=== PATIENT | female | born 1985 | race Caucasian/White ===

== ENCOUNTER 2020-12-20 11:21 | Emergency (ER) | payer BC, SELFPAY ==
--- NOTE | ~2020-12-20 | XR_ITS ---
EXAMINATION: XR chest 2V DATE: 12/20/2020 12:03 INDICATION: Shortness of breath and dry cough TECHNIQUE: PA and lateral views of the chest are obtained. COMPARISON: None available FINDINGS: The lungs are free of acute opacities. There is no pleural effusion or pneumothorax. The ca rdiomediastinal silhouette is normal. The visualized bones and soft tissues are unremarkable. IMPRESSION: 1. No acute cardiopulmonary abnormality. Reviewed, dictated and finalized at location A.
--- NOTE | 2020-12-20 11:41 | ED.GENADULT ---
HPI - General Adult General Chief complaint: Upper Respiratory Infection Stated complaint: Shortness of Breathe Time Seen by Provider: 12/20/20 11:41 Source: patient and RN notes reviewed Mode of arrival: ambulatory Limitations: no limitations History of Present Illness HPI narrative: 35-year-old female presents with complaints of dry cough, congestion, chills, nausea, body aches, and fatigue for the past 2 days. ?Jaimie reports increasing symptoms over the past 24 hours with intermittent shortness of breath and sore throat. ?Mucinex without relief. ?Dry cough with chest congestion. ?Rhinorrhea and nasal congestion. ?No high fevers, drooling, neck or throat swelling. ?No chest pain or wheezing. ?No exacerbation factors. Nausea without vomiting and abdominal pain. ?Tolerating liquids well. ?LMP 12/06/2020. ?Remains active. ?The patient reports she has not been diagnosed with COVID-19. ?The patient reports she is not waiting for the results of a COVID-19 lab test. ?The patient reports she does not have a worsening cough. ?The patient reports she does not have any loss of taste or smell and diarrhea. ?Denies recent traveling. ?Denies concerns for COVID-19 or exposures. ?At this time, the patient is not suspected of having COVID-19.? Some parts of this dictation were generated by voice recognition software and may contain typographical and/or grammatical inaccuracies. Related Data Home Medications Medication Instructions Recorded Confirmed dextroamphetamine-amphetamine 30 mg BID 12/20/20 12/20/20 Allergies Allergy/AdvReac Type Severity Reaction Status Date / Time No Known Allergies Allergy Verified 02/18/19 04:22 Review of Systems Review of Systems: Narrative: CONSTITUTIONAL: Denies fever, sweats. Complaints of chills, fatigue. EYES: Denies visual changes, redness, discharge. ENT: Complains of rhinorrhea, congestion, sore throat. Denies otalgia. CARDIOVASCULAR: Denies chest pain, palpitations, edema. RESPIRATORY: Denies ?wheezing. Complains of dry cough, intermittent dyspnea. GASTROINTESTINAL: Denies abdominal pain, vomiting, diarrhea. Complains of nausea. GENITOURINARY: Denies dysuria, hematuria, abnormal discharge. SKIN: Denies rash or itching. MUSCULOSKELETAL: Denies acute back pain, joint pain, or myalgia. NEUROLOGIC: Denies numbness or focal weakness. PSYCHIATRIC: Denies anxiety or depression. All systems reviewed & are unremarkable except as noted in HPI and below. [facility] Past Medical History Medical History (Updated 12/20/20 @ 12:07 by DARLENE Gonzales) ADHD (attention deficit hyperactivity disorder) Anxiety Endometriosis Surgical History Surgical History (Updated 12/20/20 @ 12:04 by DARLENE Gonzales) History of abdominal surgery For endometriosis Family History Family History (Updated 12/20/20 @ 12:04 by DARLENE Gonzales) Father Hypertension Mother Hypertension Depression Anxiety Social History Social History (Updated 12/20/20 @ 12:05 by DARLENE Gonzales) Smoking status: Former smoker Tobacco type: cigarettes Second hand tobacco smoke exposure: No Smoking end date: 07/06/10 Alcohol intake: current Substance use: never Substance use type: does not use Living arrangements: with family Occupation/Education: occupation Gender identity (if verbalized by the patient): Female Sexual Orientation (if Verbalized by the Patient): Straight or Heterosexual Comments At time of signature, agree with the nurse past medical, surgical, social, and family history. There is no relevant family history pertinent to the presenting complaint. Exam Narrative: Exam Narrative: GENERAL: This is a well-nourished, well-developed patient, in no apparent distress. Talks in full sentences and ambulates with steady gait without dyspnea. HEAD: Normocephalic, atraumatic. EYES: PERRL. Sclera clear/white. Vision is grossly intact. EARS: External ears normal, auditory
[2020-12-20 11:42] VITALS: BP 96/78; PULSE 107; RESP 20; TEMP 36.8; O2SAT 100
[2020-12-20 12:32] VITALS: BP 116/62
[2020-12-21 16:57] LABS: SARS-CoV-2 RNA PCR Negative
== END 2020-12-20 12:38 | disposition home or self-care (01) ==
PROVIDERS: Emergency Provider Nurse Practitioner Family
DX: J40 Bronchitis, not specified as acute or chronic (principal); Z20.822 Contact with and (suspected) exposure to COVID-19; Z87.891 Personal history of nicotine dependence; F90.9 Attention-deficit hyperactivity disorder, unspecified type; N80.9 Endometriosis, unspecified
CPT/HCPCS: 71046; 99213; C9803; G0463; U0003; U0005

== ENCOUNTER 2021-07-21 11:04 | Emergency (ER) | payer BC, SELFPAY ==
[2021-07-21 11:20] VITALS: BP 112/76; PULSE 82; RESP 16; TEMP 36.8; O2SAT 100
--- NOTE | 2021-07-21 11:40 | ED.URI ---
HPI - URI/Sore Throat General Chief Complaint: Upper Respiratory Infection Stated Complaint: Congestion,Shortness of Breath,Headache,Cough History of Present Illness HPI Narrative: This is a 35 year old vaccinated female that present as she is positive for COVID and feel like she is not getting better having pressure in the ears with Headache not feeling well coughing, congestion Fatigue . Patient states that the headache does not go away with the medication Related Data Home Medications Medication Instructions Recorded Confirmed dextroamphetamine-amphetamine 30 mg BID 12/20/20 07/21/21 Allergies Allergy/AdvReac Type Severity Reaction Status Date / Time No Known Allergies Allergy Verified 02/18/19 04:22 Review of Systems Review of Systems: headache, cough , congestion and fatigue All systems reviewed & are unremarkable except as noted in HPI and below PMFSH Past Medical History Medical History (Updated 07/21/21 @ 11:41 by Krystle Melendez NP) ADHD (attention deficit hyperactivity disorder) Anxiety Endometriosis Surgical History Surgical History (Updated 12/20/20 @ 12:04 by DARLENE Gonzales) History of abdominal surgery For endometriosis Family History Family History (Updated 12/20/20 @ 12:04 by DARLENE Gonzales) Father Hypertension Mother Hypertension Depression Anxiety Social History Social History (Updated 12/20/20 @ 12:05 by DARLENE Gonzales) Smoking status: Former smoker Tobacco type: cigarettes Second hand tobacco smoke exposure: No Smoking end date: 07/06/10 Alcohol intake: current Substance use: never Substance use type: does not use Gender identity (if verbalized by the patient): Female Sexual Orientation (if Verbalized by the Patient): Straight or Heterosexual Comments At time as signature, I have reviewed and agree with nursing past medical, social, surgical and family history. Please see nursing chart for further information. There is no relevant family history pertinent to the presenting complaint. Exam Narrative: GENERAL:Ill-appearing, well-nourished, and in no acute distress. HEAD:Normocephalic. EYES: PERRLA ENT: Nares clear, moderate rhinorrhea . Mucous membranes moist. CHEST: Clear to diminshed auscultation. No respiratory distress. HEART: Regular rate and rhythm. Normal peripheral pulses. EXTREMITIES: Normal range of motion. No edema. SKIN: Warm, dry, no rash. NEURO: No focal deficits. Alert and oriented x3. Course Course Level of Care: Express Care Visit Vital Signs Vital signs: Vital Signs Temperature 98.2 F 07/21/21 11:20 Pulse Rate 82 07/21/21 11:20 Respiratory Rate 16 07/21/21 11:20 Blood Pressure 112/76 07/21/21 11:20 Pulse Oximetry 100 07/21/21 11:20 Temperature 98.2 F 07/21/21 11:20 Pulse Rate 82 07/21/21 11:20 Respiratory Rate 16 07/21/21 11:20 Blood Pressure 112/76 07/21/21 11:20 Pulse Oximetry 100 07/21/21 11:20 MDM - URI/Sore Throat Differential Diagnosis Differential diagnosis: Likely upper respiratory infection, croup, otitis media, sinusitis, viral infection, bronchitis, influenza, pharyngitis and other (COVID) Discharge Plan Discharge Clinical Impression: COVID-19 Upper respiratory infection Qualifiers: URI type: unspecified URI Qualified Code(s): J06.9 - Acute upper respiratory infection, unspecified Patient Disposition: Home, Self-Care Condition: Stable Instructions: Antibiotic Form, COVID-19 (Coronavirus Disease 2019) (ED), How to Recover from COVID-19 at Home (ED), Long COVID (ED) Additional Instructions: Viral illness may last between 7-12days; antibiotic is NOT recommended at this time. Recommend antihistamine such as Benadryl at night time and Claritin/Zyrtec/Domenica during the day Also, recommend symptomatic treatment includes: rest, fluids, and increase humidity of the air at home. Recommend Acetaminophen or nonsteroidal anti-
== END 2021-07-21 11:49 | disposition home or self-care (01) ==
PROVIDERS: Emergency Provider Nurse Practitioner Family
DX: U07.1 COVID-19 (principal); Z87.891 Personal history of nicotine dependence; F90.9 Attention-deficit hyperactivity disorder, unspecified type; N80.9 Endometriosis, unspecified
CPT/HCPCS: 99213; G0463

== ENCOUNTER 2021-08-08 15:34 | Emergency (ER) | payer BC, SELFPAY ==
[2021-08-08 15:42] VITALS: BP 99/79; PULSE 114; RESP 18; TEMP 36.7; O2SAT 100
--- NOTE | 2021-08-08 16:11 | ED.SKABFB ---
HPI - Skin/Abscess/Foreign Bdy General Chief complaint: Skin/Abscess/Foreign Body Stated complaint: Possible Shingles Time Seen by Provider: 08/08/21 16:00 Source: patient Mode of arrival: ambulatory Limitations: no limitations History of Present Illness HPI narrative: Jaimie Eldridge is a 36 yo female with no PMH who comes with a rash on the right side of her back that wraparound under breasts and stays in the upper right dermatome. She has been physically stressed out and that she had COVID this last month and developed Covid pneumonia and while she is recovered fairly well from that that her father also . She states that she has pain with deep inspiration still and her heart rate is elevated. She is concerned about this but recommended that she wait until the rash is cleared up before going back to PCP for further evaluation Related Data Home Medications Medication Instructions Recorded Confirmed dextroamphetamine-amphetamine 30 mg BID 12/20/20 08/08/21 lorazepam 0.5 mg PO PRN PRN 08/08/21 08/08/21 Allergies Allergy/AdvReac Type Severity Reaction Status Date / Time No Known Allergies Allergy Verified 08/08/21 15:41 Review of Systems Review of Systems: CONSTITUTIONAL: Denies fever, chills, sweats. EYES: Denies visual changes, redness, discharge. ENT: Denies rhinorrhea, congestion, sore throat, otalgia. CARDIOVASCULAR: Denies chest pain, palpitations, edema. RESPIRATORY: Denies dyspnea, wheezing, cough GASTROINTESTINAL: Denies abdominal pain, nausea, vomiting, diarrhea. GENITOURINARY: Denies dysuria, hematuria, abnormal discharge SKIN: Has rash on right side of the back that wraps around her right breast, painful NEUROLOGIC: Denies numbness, or focal weakness. PSYCHIATRIC: Denies anxiety or depression. [facility] Past Medical History Medical History (Updated 08/08/21 @ 16:19 by Tanisha Stubbs CNP) ADHD (attention deficit hyperactivity disorder) Anxiety COVID-19 Endometriosis Surgical History Surgical History History of abdominal surgery For endometriosis Family History Family History Father Hypertension Mother Hypertension Depression Anxiety Social History Social History Smoking status: Former smoker Tobacco type: cigarettes Second hand tobacco smoke exposure: No Smoking end date: 07/06/10 Alcohol intake: current Substance use: never Substance use type: does not use Gender identity (if verbalized by the patient): Female Sexual Orientation (if Verbalized by the Patient): Straight or Heterosexual Comments At time of signature, I agree with nursing past medical, surgical, social and family history. There is no relevant family history pertinent to the presenting complaint. Exam Narrative: GENERAL: This is a well-nourished, well-developed patient, in mild distress. Has tender rash on right back and breast HEAD: normocephalic, atraumatic. EYES: Sclera clear/white. Vision is grossly intact. EARS: External ears normal, Hearing grossly intact. NOSE: External nose normal without nasal discharge, nares without redness, no rhinorrhea. THROAT: Mucous membranes moist, NECK: Neck supple, non-tender CARDIOVASCULAR: Regular rate and rhythm without murmurs, gallops, or rubs. RESPIRATORY: Clear to auscultation. Breath sounds equal bilaterally. No wheezes, rales, or rhonchi. GASTROINTESTINAL: Abdomen soft, non-tender, SKIN: warm, intact with erythematous rash that is not draining yet on the right thoracic back that wraps to under her right breast is tender to touch and she complains of discomfort when she takes deep breath NEURO: awake, alert, and oriented to person, place and time. There were no obvious focal neurologic abnormalities. Steady gait EXTREMITIES: Normal range of motion. BACK: Nontender without deformity Co
== END 2021-08-08 16:23 | disposition home or self-care (01) ==
PROVIDERS: Emergency Provider Nurse Practitioner
DX: B02.9 Zoster without complications (principal); N80.9 Endometriosis, unspecified; F90.9 Attention-deficit hyperactivity disorder, unspecified type; F41.9 Anxiety disorder, unspecified; Z86.16 Personal history of COVID-19
CPT/HCPCS: 99213; G0463

== ENCOUNTER 2022-01-07 08:19 | Emergency (ER) | payer BC, SELFPAY ==
[2022-01-07 08:29] VITALS: BP 109/73; PULSE 84; RESP 16; TEMP 35.9; O2SAT 99
--- NOTE | 2022-01-07 08:45 | ED.EAR ---
HPI - Ear Problem General Chief complaint: Ear Stated complaint: ear clogged Time Seen by Provider: 01/07/22 08:45 History of Present Illness HPI Narrative: Jaimie Eldridge is a 36 yo female with ADD, anxiety,asthma, here with a L clogged ear./She was swimming on the weekend and has been unable to get the water out Related Data Home Medications Medication Instructions Recorded Confirmed dextroamphetamine-amphetamine 30 30 mg BID 12/20/20 01/07/22 mg tablet Allergies Allergy/AdvReac Type Severity Reaction Status Date / Time No Known Allergies Allergy Verified 08/08/21 15:41 Review of Systems Review of Systems: CONSTITUTIONAL: Denies fever, chills, sweats. EYES: Denies visual changes, redness, discharge. ENT: Denies rhinorrhea, congestion, sore throat, left otalgia. CARDIOVASCULAR: Denies chest pain, palpitations, edema. RESPIRATORY: Denies dyspnea, wheezing, cough GASTROINTESTINAL: Denies abdominal pain, nausea, vomiting, diarrhea. GENITOURINARY: Denies dysuria, hematuria, abnormal discharge SKIN: Denies rash or itching. NEUROLOGIC: Denies numbness, or focal weakness. PSYCHIATRIC: Denies anxiety or depression. PMFSH Past Medical History Medical History ADHD (attention deficit hyperactivity disorder) Anxiety COVID-19 Endometriosis Surgical History Surgical History History of abdominal surgery For endometriosis Family History Family History Father Hypertension Mother Hypertension Depression Anxiety Social History Social History Smoking status: Former smoker Tobacco type: cigarettes Second hand tobacco smoke exposure: No Smoking end date: 07/06/10 Alcohol intake: current Substance use: never Substance use type: does not use Gender identity (if verbalized by the patient): Female Sexual Orientation (if Verbalized by the Patient): Straight or Heterosexual Exam Narrative: GENERAL: This is a well-nourished, well-developed patient, in mild distress. HEAD: normocephalic, atraumatic. EYES: Sclera clear/white. Vision is grossly intact. EARS: External ears normal, auditory canals clear on right , wax on left and without drainage, TMs normal without perforation. Sensation of water in ear hearing grossly intact. NOSE: External nose normal without nasal discharge, nares without redness, no rhinorrhea. THROAT: Mucous membranes moist, NECK: Neck supple, non-tender CARDIOVASCULAR: Regular rate and rhythm without murmurs, gallops, or rubs. RESPIRATORY: Clear to auscultation. Breath sounds equal bilaterally. No wheezes, rales, or rhonchi. GASTROINTESTINAL: Not done SKIN: warm, intact with no suspicious lesions or rash, good texture and turgor. NEURO: awake, alert, and oriented to person, place and time. There were no obvious focal neurologic abnormalities. Steady gait EXTREMITIES: Normal range of motion. BACK: Nontender without deformity Course Course Emergency Course: Patient here with clogged ear Ear flushed with peroxide and warm water on left used about 10 cc and glob of wax/cotton came out Patient given directions on use of Debrox a couple days per month to avoid wax buildup Level of Care: Express Care Visit Vital Signs Vital signs: Vital Signs Temperature 96.6 F L 01/07/22 08:29 Pulse Rate 84 01/07/22 08:29 Respiratory Rate 16 01/07/22 08:29 Blood Pressure 109/73 01/07/22 08:29 Pulse Oximetry 99 01/07/22 08:29 Oxygen Delivery Room Air 01/07/22 08:29 Temperature 96.6 F L 01/07/22 08:29 Pulse Rate 84 01/07/22 08:29 Respiratory Rate 16 01/07/22 08:29 Blood Pressure 109/73 01/07/22 08:29 Pulse Oximetry 99 01/07/22 08:29 Oxygen Delivery Room Air 01/07/22 08:29 Medical Decision Making Differential Diagnosis Di
== END 2022-01-07 09:13 | disposition home or self-care (01) ==
PROVIDERS: Emergency Provider Nurse Practitioner
DX: H61.22 Impacted cerumen, left ear (principal); Z87.891 Personal history of nicotine dependence; F90.9 Attention-deficit hyperactivity disorder, unspecified type; N80.9 Endometriosis, unspecified; Z86.16 Personal history of COVID-19
CPT/HCPCS: 69209; 99212; G0463

== ENCOUNTER 2023-04-28 01:40 | Day surgery (SDC) | payer BC, SELFPAY ==
[2023-04-23 17:02] VITALS: BMI 22.7
--- NOTE | 2023-04-23 17:10 | PC.NURSE ---
Report to the Outpatient Waiting Room, entrance under the green pavilion located off [facility], at time 1000__ on date _04/28/23 _. Planned Procedure Time: _1200_. Time changes happen often and if your time is changed the preop area will call you the afternoon before. - You and your visitor will be asked to self-screen and do not enter if you have any COVID symptoms. - A mask is optional within the hospital at this time. Patients may have clear liquids (water, carbonated beverages, clear teas, apple juice) until 3 hours prior to surgery with a maximum of 20 ounces. - No food from midnight until time of surgery - Infants may have breast milk until 4 hours before surgery, formula 6 hours prior to surgery. - Children will be allowed to drink immediately following surgery. If applicable, please bring a bottle or sippy cup to assist with drinking. Juice, water, soda, and popsicles are readily available. For infants on formula, please bring formula the day of surgery. Pacifiers are allowed. Take the following medications with a SIP of water the morning of surgery: ____NONE DO NOT STOP ANY OF YOUR OTHER PRESCRIPTION MEDICATIONS PRIOR TO SURGERY ?EXCEPT THE FOLLOWING Medications to discontinue per physician NONE Date to take last dose Please no make-up, nail azeri, hairspray, perfume, deodorant, or body powder the day of surgery. No jewelry (including any body piercings) or valuables the day of surgery, leave them at home. Please take a shower or bath the night before, or the morning of, surgery with an antibacterial soap. Wear comfortable, loose fitting clothing. Children are encouraged to wear pajamas. - Jewelry must be removed prior to entering the operating room. Rings and piercings that are not removed may be cut off. - The hospital will not accept responsibility for valuables. - Please leave all valuables, including medications, at home the day of surgery. If you are going home after surgery, a licensed warehouse delivery driver must drive you home. - NO public transportation without another adult if you receive anesthesia. - We recommend that an adult stay with you for 24 hours following discharge. - We also recommend that you do not drive, make important decision, drink alcoholic beverages, or take any drugs that were not prescribed by your health care provider for at least 24 hours after your discharge time. For Pediatric surgeries, we recommend two adults accompany the child home. Follow any additional instructions given to you from your surgeon. If you or anyone in your household have experienced Covid symptoms in the past week, please notify your surgeon or the nurse liaison at the phone number below for possible testing. Telephone instructions given to _NATASHA_and asked if any additional questions and then verbalized understanding. Patient advised to call surgeon office or pre surgery nurse liaison [phone] if any additional questions.
[2023-04-28 10:00] VITALS: BP 98/61; PULSE 76; RESP 16; TEMP 36.5; O2SAT 100; BMI 24.1
[2023-04-28] MEDS: LACTATED RINGERS 1,000 ML 30 ML IV CONT (10:45)
[2023-04-28] MEDS: ACETAMINOPHEN 500 MG TABLET 1000 MG PO (10:51)
--- NOTE | 2023-04-28 11:25 | WPDANESEPPF ---
Anes - Initial Pre Proc Eval Procedure: Operation Date: 04/28/23 12:00 Proposed Procedures p Hysteroscopy Dilation and Curettage with [place] Endometrial Ablation - Miguel Dawson MD Date/Time: 04/28/23 11:25 Surgeon: Miguel Dawson MD Pre Op Diagnosis: irg Bleeding, Dysmenorrhea Patient Data Age: 37 Gender: F Height: 1.68 m Weight: 67.9 kg Last Vital Signs Temp 36.5 C 04/28/23 10:00 Pulse 76 04/28/23 10:00 Resp 16 04/28/23 10:00 BP 98/61 L 04/28/23 10:00 Pulse Ox 100 04/28/23 10:00 O2 Del Method Room Air 04/28/23 10:00 Allergies Allergy/AdvReac Type Severity Reaction Status Date / Time No Known Allergies Allergy Verified 04/28/23 10:39 Home Medications Medication Instructions Recorded Confirmed Type dextroamphetamine-amphetamine 20 20 mg PO BID 04/23/23 04/28/23 History mg tablet (Adderall) Patient hx anesthesia problems: none Family hx anesthesia problems: none Results Review: All pre-operative results and documents have been reviewed as part of the pre-operative evaluation. [facility] Past Medical History Medical History ADHD (attention deficit hyperactivity disorder) Anxiety COVID-19 Endometriosis Surgical History Surgical History History of abdominal surgery For endometriosis Family History Family History Father Hypertension Mother Hypertension Depression Anxiety Social History Social History Smoking packs per day: 1 Smoking cigarettes per day: 20.0 Years smoked: 7 Smoking pack-years: 7.00 Smoking status: Former smoker Tobacco type: cigarettes Second hand tobacco smoke exposure: No Smoking end date: 07/06/10 Additional smoking assessment comments: 2008 STOP DATE Alcohol intake: current Drinks per week: 1 Substance use: never Substance use type: does not use Living arrangements: with family Occupation/Education: occupation Gender identity (if verbalized by the patient): Female Sexual Orientation (if Verbalized by the Patient): Straight or Heterosexual Anes - Eval Final PreProcedure Day of Procedure 04/28/23 11:25 Patient weight: normal Heart: regular rate and rhythm Lungs: clear to auscultation and normal air movement Airway: Mallampati scale class II Neurological: alert and oriented Last oral intake: >/= 8 hours ASA classification: II Emergent: no Anesthetic plan: proceed Anesthesia type and monitoring: general GIVS and standard monitoring Results Review: All pre-operative results and documents have been reviewed as part of the pre-operative evaluation. Informed Consent: The patient's anesthetic plan and its attendant risks and benefits were discussed with the patient/family/POA. Questions were solicited and answers provided to the satisfaction of the patient/family/POA.
--- NOTE | 2023-04-28 12:17 | PM.IMHP ---
H&P: HPI History of Present Illness Date/Time: 04/28/23 12:17 Chief Complaint: Heavy periods Narrative: 38 y/o with heavy menses lasting 7 days each, with lots of cramping. Her has had a vasectomy. She would like surgical management with endometrial ablation. Review of Systems Review of Systems: All systems reviewed & are unremarkable except as noted in HPI and below PMFSH Past Medical History Medical History ADHD (attention deficit hyperactivity disorder) Anxiety COVID-19 Endometriosis Surgical History Surgical History History of abdominal surgery For endometriosis Family History Family History Father Hypertension Mother Hypertension Depression Anxiety Social History Social History Smoking packs per day: 1 Smoking cigarettes per day: 20.0 Years smoked: 7 Smoking pack-years: 7.00 Smoking status: Former smoker Tobacco type: cigarettes Second hand tobacco smoke exposure: No Smoking end date: 07/06/10 Additional smoking assessment comments: 2008 STOP Alcohol intake: current Drinks per week: 1 Substance use: never Substance use type: does not use Living arrangements: with family Occupation/Education: occupation Gender identity (if verbalized by the patient): Female Sexual Orientation (if Verbalized by the Patient): Straight or Heterosexual Meds Home Medications and Allergies Home Medications Medication Instructions Recorded Confirmed Type dextroamphetamine-amphetamine 20 20 mg PO BID 04/23/23 04/28/23 History mg tablet (Adderall) Allergies Allergy/AdvReac Type Severity Reaction Status Date / Time No Known Allergies Allergy Verified 04/28/23 10:39 Vital Signs Vital Signs - 24 hr 04/28/23 10:00 Temperature 36.5 C Pulse Rate 76 Respiratory Rate 16 Blood Pressure 98/61 L Pulse Oximetry 100 Oxygen Delivery Room Air Exam Const: Orientation/consciousness: patient oriented x3 Other: Well-developed, well-nourished female in no acute distress. Neck: Thyroid: thyroid normal Lymphatic: no lymphadenopathy noted (in neck, axilla or inguinal nodes) Resp: Effort & Inspection: normal respiratory effort Auscultation: clear to auscultation bilaterally Cardio: Rate: regular rate Rhythm: regular rhythm Heart sounds: S1 normal heart sound present and S2 normal heart sound present GI: Other: ABD: Soft, nontender, nondistended. No guarding or rebound tenderness. No hepatosplenomegaly. : General: Yes no CVA tenderness Other: External genitalia: normal female hair distribution, without lesion. Urethral meatus: no lesion, non prolapsed. Bladder: no mass, nontender Vagina: well-estrogenized, without lesion or discharge. No cystocele or rectocele. Cervix: no lesion or discharge. Uterus: small, anteverted, freely mobile, nontender Adnexa: no mass or tenderness. Anus/perineum: no lesions, nontender Back/Spine/Pelvis: Back: no CVA tenderness Skin: General skin exam: normal color and no rashes or lesions noted Neuro: General: patient oriented x3 Extrem: Other: Extremities: nontender with no edema Psych: Mental Status: mental status grossly normal Affect: normal affect Assessment and Plan Assessment and plan (1) Menometrorrhagia: Code(s): N92.1 - Excessive and frequent menstruation with irregular cycle Status: Acute Assessment and Plan: A: Menometrorrhagia with dysmenorrhea P: I have offered continued attempts at medical management vs. surgical treatment. She prefers the latter. Specifically, she is interested in hysteroscopy with dilation and sharp curettage and endometrial ablation. She understands risks of surgery to include risks of anesthesia, ri
--- NOTE | 2023-04-28 12:19 | WPDHPUPDATE1 ---
History and Physical Update Update Date/Time: 04/28/23 12:19 History and Physical has been reviewed, including an updated exam of the patient. There are NO changes in the patient's condition. Risks, benefits, and alternatives have been discussed and questions answered. Patient agrees to proceed with procedure.
[2023-04-28] MEDS: LIDOCAINE HCL 1% LOCAL INJ 20 ML VIAL 10 ML INFILTRATE (12:35)
[2023-04-28 12:56] VITALS: BP 113/82; PULSE 91; RESP 16; O2SAT 100
--- NOTE | 2023-04-28 13:01 | W.PM.PROC2 ---
Procedure Note - Detailed Date of Procedure 04/28/23 Pre-op Diagnosis Menometrorrhagia Dysmenorrhea Post-op Diagnosis Same Procedure Performed Hysteroscopy Dilation and sharp curettage Endometrial ablation Surgeon Miguel Dawson MD Anesthesia MAC and Local (1% lidocaine) Findings Unremarkable endometrial cavity. Both tubal ostia seen. Description of Procedure The patient was taken to the operating room where she was prepared and draped in the usual sterile fashion in the dorsal lithotomy position. The bladder was drained with a red rubber catheter. A sterile speculum was placed into the vagina. The anterior lip of the cervix was grasped with single-tooth tenaculum. Ten mL of 1% lidocaine was administered in a paracervical block. The cervix was then gently dilated using Hegar dilators until a 7 mm dilator could be passed. Hysteroscopy was performed using sterile saline as a distention medium. Findings are as noted above. Sharp curettage was then performed, and endometrial curettings were collected on a Telfa pad and passed off to be sent to pathology. Finally, the the [place]anna device was advanced and endometrial ablation commenced without difficulty. The device was withdrawn and a second look was taken using the hysteroscope. Excellent coverage of the endometrial cavity was noted. The tenaculum was removed. Hemostasis was excellent. Sponge, lap, needle and instrument counts were correct. The patient was awakened and taken to the recovery room in stable condition. I was present and scrubbed through the entire procedure. Estimated Blood Loss 10 Drains No Packing No Pathology Yes (Endometrial curettings) Complications None Condition Stable Disposition PACU
[2023-04-28 13:25] VITALS: BP 129/79; PULSE 90
[2023-04-28] MEDS: oxyCODONE HCL (*CRX) 5 MG TAB IR PO (13:44)
[2023-04-28 13:55] VITALS: BP 125/90; PULSE 69
[2023-04-28 14:25] VITALS: BP 128/84; PULSE 72
== END 2023-04-28 14:40 | disposition home or self-care (01) ==
PROVIDERS: PCP Registered Nurse; Visit Provider Obstetrics & Gynecology
PROC: 0U5B8ZZ Destruction of Endometrium, Via Natural or Artificial Opening Endoscopic (ICD-10-PCS; CPT 58563; principal; 2023-04-28 12:00)
DX: N92.0 Excessive and frequent menstruation with regular cycle (principal); N94.6 Dysmenorrhea, unspecified; F90.9 Attention-deficit hyperactivity disorder, unspecified type; F41.9 Anxiety disorder, unspecified; Z87.891 Personal history of nicotine dependence
CPT/HCPCS: 58563; 88305; A9270; J2250; J2704; J3010; J7120